=== PATIENT | male | born 1950 | race Caucasian/White ===

== ENCOUNTER 2024-09-30 04:54 | Emergency (ER) | payer MEDICARE, MEDICAID, SELFPAY ==
--- NOTE | 2024-09-30 04:57 | EKG_ITS ---
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1950 Requested By: ED Temporary Provider Order Number: [id number] Reading MD: ED Temporary Provider Measurements Intervals [place] Rate: 84 P: NC: QRS: -76 QRSD: 149 T: 103 QT: 396 QTc: 468 Interpretive Statements ATRIAL FIBRILLATION INTRAVENTRICULAR CONDUCTION DELAY [130+ ms QRS DURATION] LATERAL MYOCARDIAL INFARCTION , PROBABLY RECENT [40+ ms Q WAVE AND/OR ST/T ABNORMALITY IN I/aVL/V5/V6] INFERIOR MYOCARDIAL INFARCTION , POSSIBLY ACUTE [40+ ms Q WAVE AND/OR ST/T ABNORMALITY IN II/aVF] ACUTE ME Compared to ECG 02/10/2024 16:19:17 Intraventricular conduction delay now present Ventricular premature complex(es) no longer present Aberrant conduction of supraventricular beat(s) no longer present Right bundle-branch block no longer present Left anterior fascicular block no longer present T-wave abnormality no longer present Possible ischemia no longer present Myocardial infarct finding still present /store/S0/[id number]/ecg/[id number].pdf
[2024-09-30 04:59] VITALS: PULSE 112; RESP 18; O2SAT 99
[2024-09-30 05:04] VITALS: BMI 34.7
--- NOTE | 2024-09-30 05:09 | XR_ITS ---
Examination: AP chest single view Technique: AP portable upright chest single view Exam date and time: September 30, 2024 0528 hrs. Comparison September 11, 2024 Indications: Chest pain today Findings: Opacity in the left mid and lower lung zones consistent with early pneumonia Mild enlargement cardiac contour Mild vascular congestion Moderate osteopenia Impression: Significant left lung pneumonia
[2024-09-30 05:16] VITALS: BP 106/74; PULSE 80; RESP 18; TEMP 36.7; O2SAT 97
--- NOTE | 2024-09-30 05:25 | PD.EDCHEST ---
ED Chest Pain RME/HPI General Chief Complaint: Chest Pain Stated Complaint: CHEST PAIN Time Seen by Provider: 09/30/24 05:10 Source: patient and EMS Arrival date/time: 09/30/24 04:54 Mode of arrival: EMS Limitations: no limitations RME / HPI RME / HPI narrative: DR BARFIELD MAIN ED EVALUATION: 74yom BIBA complaining of sharp left-sided chest pain, nonradiating, that woke him from sleep. Worse with deep breath. Denies shortness of breath, nausea, sweating. Received aspirin and NTG via EMS without relief. Related Data Allergies Allergy/AdvReac Type Severity Reaction Status Date / Time No Known Allergies Allergy Verified 02/10/24 20:40 Review of Systems Review of Systems Systems Reviewed: All systems reviewed, normal except as documented Past Medical History Past Medical History NEUROLOGIC: Positive Neurological Disorders and Dementia CARDIAC: Positive Cardiac Disorders (Sick sinus syndrome), Atrial Fibrillation, Hypercholesterolemia, Congestive Heart Failure and Hypertension RESPIRATORY: Negative Chronic Obstructive Pulmonary Disease (COPD) GASTROINTESTINAL: Positive Gastrointestinal Disorders and Gastroesophageal Reflux Disease GENITOURINARY: Negative Renal Disease MUSCULOSKELETAL: Positive Musculoskeletal Disorders ENDOCRINE: Positive Endocrine Disorders and Diabetes Mellitus Type 2; Negative Diabetes Mellitus Type 1 PSYCHO/SOCIAL: Positive Depression and Anxiety Social History SMOKING STATUS: Current some day smoker ED Exam Narrative Physical exam: GENERAL APPEARANCE: alert and oriented to person, well-developed, well-nourished, no acute distress VITALS: All vitals were reviewed and the pulse ox is 97% on 2 L/min via nasal cannula, which is normal according to my interpretation. HEENT: Normocephalic, atraumatic; pupils equal, round, reactive to light; EOMI; mucous membranes pink, moist; oropharynx clear NECK: Supple LUNGS: CTABL; no wheezes, no rales, no rhonchi HEART: Regular rate, regular rhythm; normal S1, S2; no murmurs ABDOMEN: non distended; normal BS; soft, no tenderness, no guarding, no rebound; no masses, no organomegaly, no hernia BACK: no CVA tenderness EXTREMITIES: atraumatic; no edema NEUROLOGIC: awake; alert and oriented x4; cranial nerves II-XII grossly intact; no focal sensory or motor deficits PSYCHIATRIC: appropriate mood and affect SKIN: warm, dry, normal color; no rashes General Limitations: Present no limitations Course Course Course Narrative: CXR is ordered for determining etiology of chest pain. Plan for transfer for new LBBB as STEMI equivalent. Heart alert paged overhead, protocol initiated. Patient to be transferred for higher level of care. 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 Care 09/30/24 05:09 Completed EKG (ED ONLY) *Do not use* NOW Care 09/30/24 04:57 Completed EKG (ED Only) Stat Exams 09/30/24 04:57 Draft XR chest 1V portable Stat Exams 09/30/24 05:09 Completed B-Type Natriuretic Peptide Stat Lab 09/30/24 05:20 Completed CBC Stat Lab 09/30/24 05:20 Completed Comprehensive Metabolic Panel Stat Lab 09/30/24 05:20 Completed Lipase Stat Lab 09/30/24 05:20 Completed Magnesium Stat Lab 09/30/24 05:20 Completed Partial Thromboplastin Time Stat Lab 09/30/24 05:20 Completed Prothrombin Time with INR Stat Lab 09/30/24 05:20 Completed Troponin I Stat Lab 09/30/24 05:20 Completed Heparin Inj Med 09/30/24 05:30 Discontinued 4,000 unit IV X1 ONE Heparin/D5w 25K 250 ML Ivpb [Heparin in D5w Ivpb] Med 09/30/24 05:30 Discontinued 25,000 unit in 250 ml IV 8.16 units/kg/hr Morphine Inj Med 09/30/24 05:16 Discontinued 2 mg IVP X1 ONE Ondansetron Inj [Zofran Inj] Med 09/30/24 05:16 Discontinued 4 mg IV X1 ONE Vital Signs Vital signs: Vital Signs Temperature 98.0 F 09/30/24 05:16 Pulse Rate 80 09/30/24 05:16 Respiratory Rate 18 09/30/24 05:16 Blood Pressure 106/74 09/30/24 05:16 Pulse Oximetry (%) 97 09/30/24 05:16 Oxygen Delivery Method Nasal Cannula 09/30/24 05:16 Oxygen Flow Rate 2 09/30/24 05:16 Chest Pain MDM Narrative MDM Narrative:: 0600 Care signed out to [facility] provider. Past medical, surgical, social and family history reviewed. Vitals and home medications reviewed. Results and treatment plan discussed. They will assume the care of the patient at this time and will follow the patient, pending transfer to higher level of care. Scribe Attestation: I, Yuan Pat, am scribing for and in the presence of Dr. Barfield. Provider Notation: Although this document has been carefully reviewed, there may still be some phonetic and other typographical errors. These errors are purely grammatical due to imperfections in the software program and should not be construed in any way to compromise the substance of the patient's medical care during this visit. Patient data External records reviewed:: [facility] previous records and EMS form Clinical information provided by:: patient and EMS Social determinants that could affect healthcare access:: none Patient has the following chronic illnesses:: Dementia; Sick sinus syndrome, Atrial Fibrillation, Hypercholesterolemia, Congestive Heart Failure and Hypertension; Gastroesophageal Reflux Disease; Diabetes Mellitus Type 2; Depression and Anxiety How is presenting disease/condition affected by chronic disease/condition?: uneffected by Evaluation data The following diagnostics were reviewed and interpreted by me:: lab results, radiology exam(s) and EKG tracing(s) Lab and/or radiology exams considered but not ordered:: n/a Interpretation Summary: I personally reviewed the radiology data and agree with the radiologist's interpretation. EKG interpreted by me: Atrial fibrillation, left bundle branch block, deep Q waves in 2 3 aVF V1 V2 V3 V4 V5. Compared with prior EKG the LBBB is new. Heart alert called. Heparin bolus and infusion ordered. Plan for transfer for new LBBB as STEMI equivalent. Medications / Prescriptions Medications or Prescriptions considered but not ordered:: n/a Medication administrations:: Medication Administration History Discontinued Medications Heparin Sodium (Porcine) (Heparin Sod Inj 5000 Unit/Ml Vial) 4,000 unit IV X1 ONE; Protocol Stop: 09/30/24 05:31 Last Admin: 09/30/24 05:40 Dose: 4,000 unit Documented By: VENKATESH Co-signed By: GRAYSON Heparin Sodium/Dextrose (Heparin In D5w Ivpb) 25,000 unit in 250 mls @ 9.994 mls/hr IV .Q24H JORDANA; Protocol Stop: 10/14/24 05:29 Last Admin: 09/30/24 06:15 Dose: 8.16 units/kg/hr, 9.994 mls/hr Documented By: VENKATESH Co-signed By: GRAYSON Morphine Sulfate (Morphine Sulf Inj 10 Mg/Ml Vial) 2 mg IVP X1 ONE Stop: 09/30/24 05:17 Last Admin: 09/30/24 05:30 Dose: 2 mg Documented By: VENKATESH Ondansetron HCl (Ondansetron Inj 2 Mg/Ml Inj 2 Ml) 4 mg IV X1 ONE Stop: 09/30/24 05:17 Last Admin: 09/30/24 05:32 Dose: 4 mg Documented By: VENKATESH as above, if any Consultations Consultation(s) initiated? (list below): Yes Consultation #1 (Physician, Specialty, Details): Dr. Mcdowell, recommends transfer Diagnosis Chest Pain Differential Diagnosis: atypical chest pain, costochondritis, chest pain and biliary colic Most likely diagnosis given after review of the tests above:: ACS (acute coronary syndrome), Chest pain, New onset left bundle branch block (LBBB) Admission Indicated Admission indicated?: not indicated Explain why admission is indicated or not indicated:: Transfer Admission Request Was there a request for admission?: No Disposition Plan Disposition Plan: Transfer Critical Care Time Critical Care Time Critical Care Time: Yes Total Critical Care Time (min.): 35 Attestation: The high probability of sudden, clinically significant deterioration in the patient?s condition required the highest level of my preparedness to intervene urgently. The services I provided to this patient were to treat and/or prevent clinically significant deterioration. Services included the following: chart data review, reviewing nursing notes and/or old charts, documentation time, foreign legal consultant collaboration regarding findings and treatment options, medication orders and management, direct patient care, vital sign assessments and ordering, interpreting and reviewing diagnostic studies and lab tests. Aggregate critical care time includes only time during which I was engaged in work directly related to the patient?s care, as described above, whether at bedside or elsewhere in the Emergency Department. It did not include time spent performing other reported procedures or the services of residents, students, nurses or physician assistants. Discharge Plan Plan Patient Disposition: [facility] Being Transferred to: [facility] Service Needed for Transfer: Cardiology Prescriptions/Referrals Referrals: No Primary/Family,Physician [Primary Care Provider] - In 1 week Problem List Clinical Impression: ACS (acute coronary syndrome), Chest pain, New onset left bundle branch block (LBBB) Patient/Caregiver Discharge Instructions Print Language: Venezuelan Stand Alone Forms: [employer] Info., Patient Portal Info Letter
[2024-09-30] MEDS: MORPHINE SULF INJ 10 MG/ML VIAL 2 MG IVP (05:30)
[2024-09-30] MEDS: ONDANSETRON INJ 2 MG/ML INJ 2 ML 4 MG IV (05:32)
[2024-09-30] MEDS: HEPARIN SOD INJ 5000 UNIT/ML VIAL 4000 UNIT IV (05:40)
[2024-09-30 05:45] LABS: Basophils % (Auto) 0 % (0-2.5); Eosinophils # (Auto) 0.1 Thou/mm3 (0.0-0.5); Eosinophils % (Auto) 1 % (0-10); Hematocrit 43.4 % (41.0-53.0); Hemoglobin 14.9 g/dL (13.5-16.0); Immature Granulocytes % (Auto) 0 % (0-0); Immature Granulocytes Auto 0.04 Thou/mm3 (0.00-0.00); Lymphocytes # (Auto) 1.7 Thou/mm3 (1.0-4.8); Lymphocytes % (Auto) 13 % (10-50); Mean Corpuscular HGB Conc 34.3 g/dl (31.0-37.0); Mean Corpuscular Hemoglobin 27.9 pg (25.0-35.0); Mean Corpuscular Volume 81 fL (80-100); Monocytes # (Auto) 0.8 Thou/mm3 (0.0-0.8); Monocytes % (Auto) 7 % (0-12); Neutrophils # (Auto) 9.8 Thou/mm3 (1.8-7.7); Neutrophils % (Auto) 79 % (37-80); Nucleated Red Blood Cell % 0 /100 WBC (0); Platelet Count 147 Thou/mm3 (140-440); RDW Standard Deviation 40.2 fL (35.1-43.9); Red Blood Count 5.34 Miln/mm3 (4.50-5.90); White Blood Count 12.5 Thou/mm3 (3.8-10.6)
[2024-09-30 06:00] VITALS: BP 110/84; PULSE 68; RESP 18; O2SAT 96
[2024-09-30 06:05] LABS: INR 1.1 (0.9-1.3); Partial Thromboplastin Time 27.9 Seconds (22.0-36.0); Prothrombin Time 11.6 Seconds (9.0-12.2)
[2024-09-30 06:07] VITALS: BP 110/84; PULSE 78; RESP 17; TEMP 36.7; O2SAT 96
--- NOTE | 2024-09-30 06:07 | PC.NURSE ---
[id number] ROSIO CONTACTED PKT SENT. [id number] ROSIO RETURNED CALL SPEAKING WITH DR BARFIELD. [id number] BARFIELD.
--- NOTE | 2024-09-30 06:13 | PC.NURSE ---
THIS PT IS ACCEPTED BY DR. MASON. THIS IS ER:ER TRANSFER AND NUMBER FOR REPROT IS [phone]. [facility] EM[facility] WAS THE FACILITY REP I SPOKE WITH FOR ACCEPTING INFORMATION.
[2024-09-30 06:15] LABS: Anion Gap 8 (7-16); Blood Urea Nitrogen 13 mg/dL (9-23); Carbon Dioxide 25.2 mMol/L (20.0-31.0); Chloride 106 mMol/L (98-107); Creatinine (Component) 1.1 mg/dL (0.6-1.3); Potassium 3.9 mMol/L (3.4-5.1); Sodium 139 mMol/L (136-145)
[2024-09-30] MEDS: Heparin/D5w 25K 250 ML Ivpb 25,000 UNIT/250 ML BAG 9.994 UNIT IV (06:15)
[2024-09-30 06:16] LABS: Alanine Aminotransferase 15 U/L (10-49); Albumin, Serum 4.2 gm/dL (3.4-4.8); Albumin/Globulin Ratio 1.4 (1.2-2.2); Alkaline Phosphatase 92 U/L (46-116); Aspartate Amino Transferase 17 U/L (0-34); BUN/Creatinine Ratio 12 Ratio (12-20); Calcium 9.6 mg/dL (8.3-10.6); Calcium (Corrected) 9.6 mg/dL (8.5-10.1); Estimated Creatinine Clearance 84.4 mL/min (>60); Globulin 2.9 gm/dL (2.3-3.5); Glucose 190 mg/dL (74-106); Lipase 33 U/L (12-53); Magnesium 1.8 mg/dL (1.6-2.6); Osmolality,Calculated 282 (275-295); Total Protein 7.1 gm/dL (5.7-8.2); Troponin I 0.026 ng/mL (0.0-0.045); eGFR > 60 See Note
[2024-09-30 06:26] VITALS: BP 135/85; PULSE 72; RESP 18; TEMP 36.7; O2SAT 95
--- NOTE | 2024-09-30 06:31 | PD.EDADDENDU ---
Emergency Room Addendum Addendum Narrative: 0600: Care assumed from Dr. Rosales, the previous shift emergency physician. Past medical, surgical, social and family history reviewed. Vitals and home medications reviewed. I will assume the care of the patient at this time, pending . Please refer to the emergency department record for history and examination from initial visit.? Nursing notes reviewed by me. Vital signs reviewed by me. [place] medical records reviewed by me. Heart alert called prior to my shift at 05:30. Livestock Slaughterer Dr. Mcdowell was consulted and advised transferring the patient. Patient has been accepted by rare/endangered species specialist Dr. Garcia at [facility]. 0640: EMS here to txfer patient.
[2024-09-30 06:44] LABS: B-Type Natriuretic Peptide 61 pg/mL (0-100)
--- NOTE | 2024-09-30 06:58 | PC.NURSE ---
0658 [facility] NOTIFIED AT THIS TIME.
== END 2024-09-30 06:50 | disposition short-term general hospital (02) ==
PROVIDERS: Emergency Provider Emergency Medicine
DX: I24.9 Acute ischemic heart disease, unspecified (principal); I44.7 Left bundle-branch block, unspecified; I48.91 Unspecified atrial fibrillation; I45.89 Other specified conduction disorders; E78.00 Pure hypercholesterolemia, unspecified; I50.9 Heart failure, unspecified; I11.0 Hypertensive heart disease with heart failure; F17.210 Nicotine dependence, cigarettes, uncomplicated
CPT/HCPCS: 36415; 71045; 80053; 83690; 83735; 83880; 84484; 85025; 85610; 85730; 93005; 96374; 96375; 99291; J1643; J1644; J2270; J2405